=== PATIENT | female | born 1950 | race American Indian/Alaskan Native ===

== ENCOUNTER 2017-03-17 13:36 | Outpatient (CLI) | payer MEDICARE ==
--- NOTE | 2017-03-17 17:42 | XRay Report ---
FINAL REPORT PROCEDURE: XR SPINE LUMBOSACRAL 4+V TECHNIQUE: Five views of the lumbar spine are obtained HISTORY: LOW BACK PAIN COMPARISON: No prior studies are available for comparison. FINDINGS: Patient has had prior laminectomy at L5. Prominent levoscoliosis is seen centered at L1-2. Bony fusion is seen at L4-5, and possibly L5-S1. No pars defect or spondylolisthesis is seen. No compression fracture is seen. Posterior osteophytes are seen at L4-5 with hypertrophic facet changes seen throughout the lumbar spine. 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 Prominent levoscoliosis is seen.
== END 2017-03-17 13:37 | disposition home or self-care (01) ==
LOC: XRAY 13:36
PROVIDERS: ATTEND Internal Medicine
DX: M41.86 Other forms of scoliosis, lumbar region (principal); M47.896 Other spondylosis, lumbar region; M25.78 Osteophyte, vertebrae; Z98.890 Other specified postprocedural states
CPT/HCPCS: 72110

== ENCOUNTER 2018-05-16 09:01 | Outpatient (CLI) | payer MEDICARE ==
--- NOTE | 2018-05-16 10:06 | Cat Scan Report ---
CT SCAN OF THE CERVICAL SPINE: HISTORY: Cervical pain. TECHNIQUE: Contiguous 1.25 mm axial images of the cervical spine were obtained. Sagittal and coronal reformatted images. FINDINGS: There is mild straightening of the normal cervical lordosis which could represent muscular spasm or positioning of the patient. Moderate disc space narrowing and circumferential spurring is identified at C5-6 and C6-7. The remaining disc levels are within normal limits. The posterior elements are within normal limits. No facet arthropathy is identified. No significant narrowing of the bony neural foramen. No evidence for fracture, subluxation or bone lesion. Although intraspinal contents can be obscured on CT, no obvious bulging disc or central canal stenosis is appreciated. IMPRESSION: Moderate degenerative disc disease at C5-6 and C6-7.
== END 2018-05-16 09:02 | disposition home or self-care (01) ==
LOC: CT 09:01
PROVIDERS: ATTEND Internal Medicine
DX: M50.322 Other cervical disc degeneration at C5-C6 level (principal); M48.02 Spinal stenosis, cervical region
CPT/HCPCS: 72125